=== PATIENT | male | born 1935 | race Caucasian/White ===

== ENCOUNTER 2020-07-24 21:25 | Observation (INO) ==
[2020-07-24 22:26] LABS: Basophils % 0.5 %; Hematocrit 43.5 % (37.5-50.1); Hemoglobin 14.7 g/dL (12.9-16.9); Immature Granulocytes % 0.4 % (0-4); Lymphocytes # 1.8 K/mcL (0.6-4.6); Lymphocytes % 22.4 %; Mean Corpuscular HGB Conc 33.8 g/dL (31.6-35.5); Mean Corpuscular Hemoglobin 31.3 pg (28.0-33.3); Mean Corpuscular Volume 92.6 fL (83.0-100.0); Mean Platelet Volume 9.8 fL (9.4-12.4); Monocytes # 0.9 K/mcL (0.0-1.3); Monocytes % 11.5 %; Neutrophils # 5.3 K/mcL (1.6-8.9); Platelet Count 191 K/mcL (140-400); Red Cell Distribution Width 13.3 % (11.5-14.5); Segmented Neutrophils % 65.2 %; White Blood Count 8.1 K/mcL (4.3-11.1)
[2020-07-24 22:42] LABS: INR 1.3; Prothrombin Time 15.1 Seconds (9.4-12.1)
[2020-07-24 22:45] LABS: Calcium 9.3 mg/dL (8.6-10.3); Potassium 3.6 mEq/L (3.5-5.1)
[2020-07-25] MEDS ORDERED: Ondansetron 4 MG/2 ML VIAL IVP PRN (00:45)
[2020-07-25] MEDS ORDERED: *HR* Promethazine 25 MG/ML VIAL IM PRN (00:45)
[2020-07-25] MEDS ORDERED: Naloxone 0.4 MG/ML INJ IVP PRN (00:45)
[2020-07-25] MEDS ORDERED: *HR* Dextrose 50 % in Water (Vial) 50 ML VIAL IVP PRN (00:47)
[2020-07-25] MEDS ORDERED: Dextrose Gel 15 GM/37.5 ML TUBE PO PRN ×2 (00:47)
[2020-07-25] MEDS ORDERED: D5% in Water 1,000 ML IVC PRN (00:47)
[2020-07-25] MEDS: Ringers Solution, Lactated 1,000 ML IVC SCH ×2 (01:03→10:44)
[2020-07-25] MEDS: Insulin LISPRO 300 UNITS/3 ML VIAL SUBQ SCH ×3 (06:06→17:10)
[2020-07-25 07:20] LABS: Basophils % 0.7 %; Eosinophils # 0.1 K/mcL (0.0-0.6); Eosinophils % 2.3 %; Hematocrit 41.7 % (37.5-50.1); Hemoglobin 14.3 g/dL (12.9-16.9); Immature Granulocytes % 0.3 % (0-4); Lymphocytes # 1.7 K/mcL (0.6-4.6); Lymphocytes % 28.6 %; Mean Corpuscular HGB Conc 34.3 g/dL (31.6-35.5); Mean Corpuscular Hemoglobin 31.8 pg (28.0-33.3); Mean Corpuscular Volume 92.9 fL (83.0-100.0); Mean Platelet Volume 10.2 fL (9.4-12.4); Monocytes # 0.7 K/mcL (0.0-1.3); Monocytes % 11.5 %; Neutrophils # 3.4 K/mcL (1.6-8.9); Platelet Count 191 K/mcL (140-400); Red Blood Count 4.49 M/mcL (4.19-5.50); Red Cell Distribution Width 13.4 % (11.5-14.5); Segmented Neutrophils % 56.6 %; White Blood Count 6.1 K/mcL (4.3-11.1)
[2020-07-25 07:27] LABS: INR 1.4; Prothrombin Time 15.5 Seconds (9.4-12.1)
[2020-07-25 07:38] LABS: Magnesium 1.9 mg/dL (1.6-2.6); Potassium 3.4 mEq/L (3.5-5.1)
[2020-07-25] MEDS: Apixaban 2.5 MG TABLET PO SCH (20:19)
[2020-07-25] MEDS: (Diclofenac Sodium [Voltaren] 100 GM Gel) TP SCH (20:20)
[2020-07-26] MEDS: Insulin LISPRO 300 UNITS/3 ML VIAL SUBQ SCH ×5 (00:12→20:41)
[2020-07-26 03:16] LABS: Calcium 8.9 mg/dL (8.6-10.3); Potassium 3.8 mEq/L (3.5-5.1)
[2020-07-26] MEDS: (Eplerenone [Inspra] 25 MG) PO SCH (07:26)
[2020-07-26] MEDS: hydroCHLOROthiazide 25 MG TABLET PO SCH (07:34)
[2020-07-26] MEDS: Apixaban 2.5 MG TABLET PO SCH ×2 (07:34→20:41)
[2020-07-26] MEDS: allopurinoL 100 MG TABLET PO SCH (07:35)
[2020-07-26] MEDS: Furosemide 40 MG TABLET PO SCH (08:00)
[2020-07-26] MEDS: Piperacillin/Tazobactam 3.375 GM in 0.9 % Sodium Chloride Mini Bag 100 ML IVPB SCH ×2 (15:58→23:14)
[2020-07-26] MEDS: Acetaminophen 325 MG TABLET PO PRN (16:02)
[2020-07-26] MEDS: (Diclofenac Sodium [Voltaren] 100 GM Gel) TP SCH (20:41)
[2020-07-27 05:34] LABS: Calcium 9.1 mg/dL (8.6-10.3); Potassium 3.6 mEq/L (3.5-5.1)
[2020-07-27] MEDS: (Eplerenone [Inspra] 25 MG) PO SCH (07:18)
[2020-07-27] MEDS: Furosemide 40 MG TABLET PO SCH (07:30)
[2020-07-27] MEDS: Piperacillin/Tazobactam 3.375 GM in 0.9 % Sodium Chloride Mini Bag 100 ML IVPB SCH ×2 (07:54→15:19)
[2020-07-27] MEDS: Apixaban 2.5 MG TABLET PO SCH (07:54)
[2020-07-27] MEDS: hydroCHLOROthiazide 25 MG TABLET PO SCH (07:54)
[2020-07-27] MEDS: allopurinoL 100 MG TABLET PO SCH (07:55)
[2020-07-27] MEDS: Insulin LISPRO 300 UNITS/3 ML VIAL SUBQ SCH ×3 (08:00→16:32)
[2020-07-27 15:04] VITALS: BP 121/75
[2020-07-27] MEDS: Acetaminophen 325 MG TABLET PO PRN (15:19)
== END 2020-07-27 16:49 | disposition home or self-care (01) ==
LOC: EMEROOARM 21:25 → 3BNU 21:25
PROVIDERS: ADMIT Family Medicine; ATTEND Family Medicine